=== PATIENT | male | born 1975 | race Two or more races ===

== ENCOUNTER 2020-06-08 15:44 | Inpatient (IN) | payer BC, OTHER ==
[~2020-06-08] VITALS: Ht 180.3 cm; Wt 133.4 kg
[2020-06-08 17:40] LABS: Basophils # (auto) 0.1 10 ^3/uL (0-0.2); Eosinophils # (auto) 0 10 ^3/uL (0-0.8); Eosinophils % (auto) 0.6 % (0.0-7.0); Hemoglobin 17.2 g/dL (13.5-17.5); Lymphocytes # (auto) 0.8 10 ^3/uL (0.4-5.4); Monocytes # (auto) 0.4 10 ^3/uL (0-1.3); Neutrophils % (auto) 74.6 % (37.0-80.0); Nucleated Red Blood Cells % 0.1 %; Platelet Count (auto) 205 10^3/uL (140-450)
[2020-06-08 17:42] LABS: Basophils % (auto) 1.3 % (0.0-2.0); Hematocrit 51.8 % (41.0-53.0); Lymphocytes % (auto) 15.3 % (10.0-50.0); Mean Corpuscular Hemoglobin 33.7 pg (28.0-32.0); Mean Corpuscular Hgb Conc. 33.1 g/dL (32.0-36.0); Mean Corpuscular Volume 101.8 fL (80.0-100.0); Monocytes % (auto) 8.2 % (0.0-12.0); Neutrophils # (auto) 3.9 10 ^3/uL (1.6-8.6); Red Blood Cells 5.09 10^6/uL (4.5-5.90); Red Cell Distribution Width 13.1 % (11.8-14.3); White Blood Cell 5.2 10^3/uL (4.4-10.8)
[2020-06-08 18:05] LABS: Calcium 9.1 mg/dL (8.5-10.1); Potassium 4.4 mmol/L (3.5-5.1)
[2020-06-08 18:13] LABS: BUN/Creatinine Ratio 10.1; Bilirubin, Total 1.4 mg/dL (0.2-1.0); CRP High Sensitivity 2.38 mg/dL (< 0.3); Total Protein 9.1 g/dL (6.4-8.2)
[2020-06-08] MEDS ORDERED: SODIUM CHLORIDE 0.9% 1,000 ML IV ONE ×2 (18:30→20:00)
[2020-06-08] MEDS ORDERED: InsuLIN REG 1unit/0.01ml Soln (100units/ml) IV ONE ×2 (18:30→20:00)
[2020-06-08] MEDS ORDERED: InsuLIN R (HUMAN) 100 UNITS in SODIUM CHL 0.9% 99 ML IV SCH (21:09)
[2020-06-08] MEDS ORDERED: DEXTROSE (50%) 50ML SYRG IV PRN (21:15)
[2020-06-08] MEDS ORDERED: INSULIN LANTUS (GLARGINE) 1 /0.01ml (100units/ml) SC ONE (21:15)
[2020-06-08] MEDS ORDERED: ONDANSETRON HCL 4 MG/2 ML VIAL IV PRN (21:15)
[2020-06-08] MEDS: SODIUM CHLORIDE 0.9% 1,000 ML IV SCH (21:59)
[2020-06-08] MEDS: ACCU-CHEK COMFORT CURVE STRIP VI SCH ×2 (21:59→23:43)
[2020-06-08] MEDS ORDERED: MORPHINE SULF INJ 2 MG/ML SYRINGE 1ML IV PRN (22:30)
[2020-06-08] MEDS ORDERED: NITROGLYCERIN 0.4 MG SL TAB SL PRN (22:30)
[2020-06-08] MEDS: PANTOPRAZOLE 40 MG/10 ML VIAL INJ IV SCH (22:30)
[2020-06-08 23:31] LABS: Calcium 9.1 mg/dL (8.5-10.1)
[2020-06-08 23:33] LABS: BUN/Creatinine Ratio 16.8
[2020-06-09] MEDS ORDERED: SODIUM CHLORIDE 0.9% 1,000 ML IV SCH ×2 (01:09→03:09)
[2020-06-09] MEDS: ACCU-CHEK COMFORT CURVE STRIP VI SCH ×7 (01:40→23:44)
[2020-06-09] MEDS ORDERED: DEXTROSE (50%) 50ML SYRG IV PRN (03:00)
[2020-06-09] MEDS: SODIUM CHLORIDE 0.9% 1,000 ML IV SCH ×4 (03:15→23:00)
[2020-06-09 03:26] LABS: Basophils # (auto) 0.1 10 ^3/uL (0-0.2); Eosinophils # (auto) 0.1 10 ^3/uL (0-0.8); Eosinophils % (auto) 2.1 % (0.0-7.0); Hematocrit 47.5 % (41.0-53.0); Lymphocytes % (auto) 21.9 % (10.0-50.0); Mean Corpuscular Hemoglobin 33.8 pg (28.0-32.0); Mean Corpuscular Hgb Conc. 33.8 g/dL (32.0-36.0); Mean Corpuscular Volume 100.2 fL (80.0-100.0); Monocytes # (auto) 0.4 10 ^3/uL (0-1.3); Monocytes % (auto) 9.1 % (0.0-12.0); Neutrophils # (auto) 2.9 10 ^3/uL (1.6-8.6); Neutrophils % (auto) 64.9 % (37.0-80.0); Platelet Count (auto) 171 10^3/uL (140-450); Red Blood Cells 4.74 10^6/uL (4.5-5.90); Red Cell Distribution Width 13.5 % (11.8-14.3); White Blood Cell 4.5 10^3/uL (4.4-10.8)
[2020-06-09 03:44] LABS: Albumin 3.5 g/dL (3.4-5.0); Calcium 8.5 mg/dL (8.5-10.1); Potassium 3.9 mmol/L (3.5-5.1)
[2020-06-09 03:48] LABS: BUN/Creatinine Ratio 15.2; Bilirubin, Total 1.1 mg/dL (0.2-1.0); Total Protein 7.8 g/dL (6.4-8.2)
[2020-06-09] MEDS: InsuLIN REG 1unit/0.01ml Soln (100units/ml) SC SCH ×6 (04:44→23:44)
[2020-06-09 05:00] VITALS: BP 148/107
[2020-06-09 08:00] VITALS: BP 154/108
[2020-06-09 09:00] VITALS: BP 154/108
[2020-06-09] MEDS ORDERED: INSULIN LANTUS (GLARGINE) 1 /0.01ml (100units/ml) SC SCH (10:00)
[2020-06-09] MEDS: PANTOPRAZOLE 40 MG/10 ML VIAL INJ IV SCH (10:03)
[2020-06-09 13:00] VITALS: BP 149/106
[2020-06-09] MEDS ORDERED: LORazepam 0.5 MG TAB PO PRN (13:00)
[2020-06-09] MEDS ORDERED: LOSARTAN POTASSIUM 50 MG TAB PO ONE (13:15)
[2020-06-09] MEDS ORDERED: cloNIDine HCL 0.1 MG TAB PO ONE (13:15)
[2020-06-09 14:45] LABS: Urine Bacteria NONE SEEN /hpf (None Seen); Urine Blood Negative /uL (Negative); Urine WBC 3 /hpf (0 - 3)
[2020-06-09 15:01] LABS: Alcohol, Urine < 3.0 mg/dL (0-10); Amphetamine Screen, Urine NEGATIVE (NEGATIVE); Barbiturate Scree,Urine NEGATIVE (NEGATIVE); Benzodiazephine Screen, Urine NEGATIVE (NEGATIVE); Cannabinoid Screen, Urine NEGATIVE (NEGATIVE); Cocaine Screen, Urine NEGATIVE (NEGATIVE); Opiate Scree,Urine NEGATIVE (NEGATIVE); Phencyclidine Screen, Urine NEGATIVE (NEGATIVE)
[2020-06-09] MEDS: FOLIC ACID 1 MG, MULTIPLE VITAMIN 10 ML, MAGNESIUM SULF SDV 50% 8 MEQ, THIAMINE INJ 100... INJ SCH ×5 (16:07)
[2020-06-09 16:39] VITALS: BP 148/100
[2020-06-09] MEDS ORDERED: cloNIDine HCL 0.1 MG TAB PO PRN (17:00)
[2020-06-09] MEDS: INSULIN 70/30 1unit/0.01ml Susp (100units/ml) SC SCH (21:55)
[2020-06-09 22:00] VITALS: BP 149/106
[2020-06-10] MEDS: guaiFENesin-DM 100/10mg/5ml SYR PO PRN ×2 (01:07→21:20)
[2020-06-10] MEDS: ACCU-CHEK COMFORT CURVE STRIP VI SCH ×5 (04:03→21:13)
[2020-06-10] MEDS: InsuLIN REG 1unit/0.01ml Soln (100units/ml) SC SCH ×5 (04:05→21:12)
[2020-06-10 05:00] VITALS: BP 148/110
[2020-06-10 06:47] LABS: Cholesterol 338 mg/dL (< 200); Folate (Folic Acid) > 24.00 ng/mL (5.38-24); HDL Cholesterol 41 mg/dL (40-59); LDL Cholesterol 276 mg/dL (< 100); Triglycerides 181 mg/dL (< 150)
[2020-06-10] MEDS ORDERED: hydrALAZINE HCL 20 MG/ML VL IV ONE (07:00)
[2020-06-10] MEDS ORDERED: hydrALAZINE HCL 20 MG/ML VL IV PRN (07:00)
[2020-06-10] MEDS ORDERED: cloNIDine HCL 0.1 MG TAB PO PRN (07:00)
[2020-06-10 07:40] LABS: Albumin 3.1 g/dL (3.4-5.0); Calcium 8.5 mg/dL (8.5-10.1); Magnesium 2.4 mg/dL (1.6-2.6)
[2020-06-10 07:45] LABS: BUN/Creatinine Ratio 11.8; Bilirubin, Total 1.1 mg/dL (0.2-1.0); Phosphorus 3.6 mg/dL (2.5-4.90)
[2020-06-10 08:00] VITALS: BP 146/94
[2020-06-10 09:00] VITALS: BP 146/94
[2020-06-10] MEDS: SODIUM CHLORIDE 0.9% 1,000 ML IV SCH ×2 (09:00→18:28)
[2020-06-10 09:43] LABS: Hepatitis B Surface Antibody Negative
[2020-06-10] MEDS ORDERED: POTASSIUM CHL 20 Meq TABLET PO ONE (10:00)
[2020-06-10 10:02] LABS: Hepatitis A Total Antibody Positive
[2020-06-10 11:18] LABS: Hepatitis A Ab IgM Negative; Hepatitis B Core IgM Negative; Hepatitis B Core Total AB Negative; Hepatitis B Surface Antigen Negative (Negative); Hepatitis C Antibody Negative (Negative)
[2020-06-10 11:21] LABS: INR 1.02 (0.9-1.15); Partial Thromboplastin Time 25.1 sec (23.0-31.2)
[2020-06-10] MEDS: INSULIN 70/30 1unit/0.01ml Susp (100units/ml) SC SCH ×3 (11:45→22:00)
[2020-06-10] MEDS: LOSARTAN POTASSIUM 50 MG TAB PO SCH (11:56)
[2020-06-10] MEDS: PANTOPRAZOLE 40 MG/10 ML VIAL INJ IV SCH (11:56)
[2020-06-10 12:00] VITALS: BP 134/66
[2020-06-10] MEDS: FOLIC ACID 1 MG, MULTIPLE VITAMIN 10 ML, MAGNESIUM SULF SDV 50% 8 MEQ, THIAMINE INJ 100... INJ SCH ×5 (15:15)
[2020-06-10 16:48] VITALS: BP 135/84
[2020-06-10 21:59] VITALS: BP 142/95
[2020-06-11] MEDS: ACCU-CHEK COMFORT CURVE STRIP VI SCH ×5 (00:01→16:00)
[2020-06-11] MEDS: InsuLIN REG 1unit/0.01ml Soln (100units/ml) SC SCH ×5 (00:01→16:00)
[2020-06-11 04:56] VITALS: BP 146/93
[2020-06-11] MEDS: SODIUM CHLORIDE 0.9% 1,000 ML IV SCH ×2 (05:00→15:00)
[2020-06-11 07:14] LABS: Eosinophils # (auto) 0.1 10 ^3/uL (0-0.8); Hemoglobin 15.9 g/dL (13.5-17.5); Monocytes # (auto) 0.3 10 ^3/uL (0-1.3); Neutrophils # (auto) 2.3 10 ^3/uL (1.6-8.6); White Blood Cell 3.7 10^3/uL (4.4-10.8)
[2020-06-11 07:16] LABS: Basophils # (auto) 0.1 10 ^3/uL (0-0.2); Basophils % (auto) 1.4 % (0.0-2.0); Eosinophils % (auto) 2.9 % (0.0-7.0); Hematocrit 46.9 % (41.0-53.0); Lymphocytes % (auto) 26.4 % (10.0-50.0); Mean Corpuscular Hemoglobin 33.8 pg (28.0-32.0); Mean Corpuscular Volume 99.6 fL (80.0-100.0); Monocytes % (auto) 7.8 % (0.0-12.0); Neutrophils % (auto) 61.5 % (37.0-80.0); Nucleated Red Blood Cells % 1.2 %; Platelet Count (auto) 164 10^3/uL (140-450); Red Blood Cells 4.71 10^6/uL (4.5-5.90); Red Cell Distribution Width 13.3 % (11.8-14.3)
[2020-06-11 07:19] LABS: Albumin 3.2 g/dL (3.4-5.0); Calcium 8.8 mg/dL (8.5-10.1); Magnesium 2.1 mg/dL (1.6-2.6); Potassium 3.3 mmol/L (3.5-5.1)
[2020-06-11 07:22] LABS: BUN/Creatinine Ratio 12.2
[2020-06-11 07:25] LABS: Bilirubin, Total 0.9 mg/dL (0.2-1.0); Total Protein 7.7 g/dL (6.4-8.2)
[2020-06-11 08:00] VITALS: BP 149/112
[2020-06-11 09:20] VITALS: BP 143/96
[2020-06-11] MEDS ORDERED: POTASSIUM CHL 20 Meq TABLET PO ONE (10:30)
[2020-06-11] MEDS: INSULIN 70/30 1unit/0.01ml Susp (100units/ml) SC SCH (11:30)
[2020-06-11] MEDS: FOLIC ACID 1 MG, MULTIPLE VITAMIN 10 ML, MAGNESIUM SULF SDV 50% 8 MEQ, THIAMINE INJ 100... INJ SCH ×5 (11:32)
[2020-06-11] MEDS: PANTOPRAZOLE 40 MG/10 ML VIAL INJ IV SCH (11:32)
[2020-06-11] MEDS: LOSARTAN POTASSIUM 50 MG TAB PO SCH (11:32)
[2020-06-11 13:12] VITALS: BP 143/109
[2020-06-11 15:50] VITALS: BP 148/108
[2020-06-11 17:07] VITALS: BP 134/95
== END 2020-06-11 17:30 | disposition home or self-care (01) | DRG 638 ==
LOC: ER 15:44 → OVERFLOW 15:45 → TELE-WESTW 06-09 05:05
PROVIDERS: ADMIT Nurse Practitioner; ATTEND Internal Medicine
DX: E11.10 Type 2 diabetes mellitus with ketoacidosis without coma (principal); Z68.41 Body mass index [BMI] 40.0-44.9, adult; E66.01 Morbid (severe) obesity due to excess calories; E78.5 Hyperlipidemia, unspecified; F10.10 Alcohol abuse, uncomplicated; I08.0 Rheumatic disorders of both mitral and aortic valves; I10 Essential (primary) hypertension; I70.0 Atherosclerosis of aorta; K40.20 Bilateral inguinal hernia, without obstruction or gangrene, not specified as recurrent; K76.0 Fatty (change of) liver, not elsewhere classified; Z20.828 Contact with and (suspected) exposure to other viral communicable diseases; R74.0 Nonspecific elevation of levels of transaminase and lactic acid dehydrogenase [LDH]; K70.10 Alcoholic hepatitis without ascites; Y90.9 Presence of alcohol in blood, level not specified; Z79.4 Long term (current) use of insulin
CPT/HCPCS: 36415; 36600; 71045; 74176; 76705; 80048; 80053; 80061; 80074; 80307; 81001; 82010; 82043; 82306; 82607; 82728; 82746; 82805; 82962; 83036; 83516; 83615; 83735; 83930; 84100; 84443; 85025; 85379; 85610; 85730; 86141; 86225; 86235; 86704; 86706; 86708; 86803; 87340; 87426; 93005; 93306; C9113; G0378; J1815

== ENCOUNTER → 2020-06-15 | Outpatient (CLI) | payer BC ==
[2020-06-15 14:57] LABS: Albumin 3.7 g/dL (3.4-5.0); Calcium 9.7 mg/dL (8.5-10.1)
[2020-06-15 15:01] LABS: BUN/Creatinine Ratio 17.2; Bilirubin, Total 0.9 mg/dL (0.2-1.0); Total Protein 7.8 g/dL (6.4-8.2)
== END | disposition home or self-care (01) ==
LOC: LAB 14:23
PROVIDERS: ATTEND Internal Medicine
DX: I10 Essential (primary) hypertension (principal)
CPT/HCPCS: 36415; 80053

== ENCOUNTER → 2020-07-06 | Outpatient (CLI) | payer BC ==
[2020-07-06 17:20] LABS: Albumin 3.9 g/dL (3.4-5.0); Calcium 8.9 mg/dL (8.5-10.1); Potassium 3.7 mmol/L (3.5-5.1)
[2020-07-06 17:23] LABS: BUN/Creatinine Ratio 21.5; Bilirubin, Total 0.8 mg/dL (0.2-1.0); Total Protein 7.5 g/dL (6.4-8.2)
== END | disposition home or self-care (01) ==
LOC: LAB 16:51
PROVIDERS: ATTEND Internal Medicine
DX: E11.22 Type 2 diabetes mellitus with diabetic chronic kidney disease (principal); N18.9 Chronic kidney disease, unspecified
CPT/HCPCS: 36415; 80053

== ENCOUNTER 2023-12-31 19:01 | Emergency (ER) | payer BC ==
[~2023-12-31] VITALS: Ht 180.3 cm; Wt 108.9 kg
[2023-12-31 20:27] LABS: Basophils # (auto) 0.1 10 ^3/uL (0-0.2); Basophils % (auto) 1.3 % (0.0-2.0); Eosinophils # (auto) 0.1 10 ^3/uL (0-0.8); Eosinophils % (auto) 1.1 % (0.0-7.0); Hematocrit 42.3 % (41.0-53.0); Hemoglobin 14.3 g/dL (13.5-17.5); Lymphocytes # (auto) 1.1 10 ^3/uL (0.4-5.4); Lymphocytes % (auto) 25.4 % (10.0-50.0); Mean Corpuscular Hgb Conc. 33.8 g/dL (32.0-36.0); Mean Corpuscular Volume 94.6 fL (80.0-100.0); Monocytes # (auto) 0.6 10 ^3/uL (0-1.3); Monocytes % (auto) 13.1 % (0.0-12.0); Neutrophils # (auto) 2.6 10 ^3/uL (1.6-8.6); Neutrophils % (auto) 59.1 % (37.0-80.0); Nucleated Red Blood Cells % 0.2 %; Red Blood Cells 4.47 10^6/uL (4.5-5.90); Red Cell Distribution Width 13.1 % (11.8-14.3); White Blood Cell 4.4 10^3/uL (4.4-10.8)
[2023-12-31 20:43] LABS: Alanine Aminotransferase 13 U/L (7-40); Albumin 4.4 g/dL (3.2-4.8); Alkaline Phosphatase 113 U/L (46-116); Anion Gap 4 (5-15); Aspartate Aminotransferase 14 U/L (13-40); BUN/Creatinine Ratio 12.1 (10.0-20.0); Blood Urea Nitrogen 11 mg/dL (9-23); Calcium 9.5 mg/dL (8.5-10.1); Carbon Dioxide 29 mmol/L (20-30); Chloride 98 mmol/L (98-107); Potassium 4.1 mmol/L (3.5-5.1); Sodium 131 mmol/L (136-145)
[2023-12-31 20:44] LABS: Bilirubin, Total 0.4 mg/dL (0.2-1.0); Total Protein 7.1 g/dL (5.7-8.2)
[2023-12-31 20:51] LABS: Urine Bacteria FEW /hpf (None Seen); Urine Blood Negative /uL (Negative); Urine Clarity Clear (Clear); Urine Color Colorless (Yellow); Urine Protein, UAD Negative (Negative); Urine Urobilinogen Normal (Negative); Urine WBC 1 /hpf (0 - 3); Urine pH 6.5 (5.0-9.0)
[2023-12-31 20:53] LABS: Glucose 426 mg/dL (74-106)
[2023-12-31] MEDS ORDERED: NITR-87 PO (21:59)
[2023-12-31] MEDS ORDERED: INSLANTI SC (21:59)
[2023-12-31] MEDS ORDERED: METF-489 PO (21:59)
[2023-12-31 22:14] VITALS: BP 145/106; PULSE 91; RESP 16; TEMP 97; O2SAT 99
== END 2023-12-31 22:21 | disposition home or self-care (01) ==
LOC: ER 19:01
DX: E11.65 Type 2 diabetes mellitus with hyperglycemia (principal); N39.0 Urinary tract infection, site not specified; I10 Essential (primary) hypertension; E78.5 Hyperlipidemia, unspecified
CPT/HCPCS: 36415; 36600; 71045; 80053; 81001; 82805; 82962; 85025

== ENCOUNTER 2024-03-25 12:42 | Inpatient (IN) | payer BC ==
[~2024-03-25] VITALS: Ht 180.3 cm; Wt 104.1 kg
[~2024-03-25 12:42] MED LIST: INSLANTI SC; METF-489 PO; NITR-87 PO
[2024-03-25] MEDS: ALBUTEROL SULF 2.5 MG/0.5ML(0.5%) NEB SOLN NEB ONE (15:03)
[2024-03-25] MEDS: cefTRIAXone SOD 1,000 MG VL IM ONE (15:44)
[2024-03-25 16:16] LABS: Basophils # (auto) 0.1 10 ^3/uL (0-0.2); Basophils % (auto) 1.2 % (0.0-2.0); Eosinophils # (auto) 0.1 10 ^3/uL (0-0.8); Eosinophils % (auto) 0.9 % (0.0-7.0); Hematocrit 44.9 % (41.0-53.0); Hemoglobin 15.4 g/dL (13.5-17.5); Lymphocytes # (auto) 1.2 10 ^3/uL (0.4-5.4); Lymphocytes % (auto) 18.2 % (10.0-50.0); Mean Corpuscular Hemoglobin 33.1 pg (28.0-32.0); Mean Corpuscular Hgb Conc. 34.2 g/dL (32.0-36.0); Mean Corpuscular Volume 96.8 fL (80.0-100.0); Monocytes # (auto) 0.6 10 ^3/uL (0-1.3); Monocytes % (auto) 9.4 % (0.0-12.0); Neutrophils # (auto) 4.8 10 ^3/uL (1.6-8.6); Neutrophils % (auto) 70.3 % (37.0-80.0); Nucleated Red Blood Cells % 0.2 %; Red Blood Cells 4.64 10^6/uL (4.5-5.90); Red Cell Distribution Width 14.2 % (11.8-14.3); White Blood Cell 6.8 10^3/uL (4.4-10.8)
[2024-03-25 16:43] LABS: Alanine Aminotransferase 21 U/L (7-40); Albumin 4.8 g/dL (3.2-4.8); Alkaline Phosphatase 174 U/L (46-116); Carbon Dioxide 11 mmol/L (20-30); Chloride 95 mmol/L (98-107); Glucose 388 mg/dL (74-106); Potassium 3.9 mmol/L (3.5-5.1)
[2024-03-25 16:44] LABS: Anion Gap 24 (5-15); Aspartate Aminotransferase 14 U/L (13-40); BUN/Creatinine Ratio 12.3 (10.0-20.0); Bilirubin, Total 0.5 mg/dL (0.2-1.0); Blood Urea Nitrogen 16 mg/dL (9-23); Sodium 130 mmol/L (136-145)
[2024-03-25] MEDS ORDERED: AUG875T PO (17:26)
[2024-03-25] MEDS ORDERED: AZITTAB2 PO (17:26)
[2024-03-25] MEDS ORDERED: ALBUAER3 IN (17:27)
[2024-03-26] VITALS (8 sets, daily range): BP systolic 159; BP diastolic 104; PULSE 95–143; RESP 18–26; TEMP 98.3; O2SAT 97–100
[2024-03-26] MEDS: methylPREDNISolone SOD SUCC 125 MG/2 ML VL IV ONE (00:20)
[2024-03-26] MEDS: ALBUTEROL SULF 2.5 MG/0.5ML(0.5%) NEB SOLN HHN ONE (00:32)
[2024-03-26] MEDS: IPRATROPIUM BROM 0.5 MG/2.5ML INH SOL HHN ONE (00:32)
[2024-03-26] MEDS ORDERED: NITROGLYCERIN 0.4 MG SL TAB SL PRN ×2 (00:45→01:45)
[2024-03-26] MEDS ORDERED: ONDANSETRON HCL 4 MG/2 ML VIAL IV PRN (00:45)
[2024-03-26] MEDS ORDERED: DEXTROSE (50%) 50ML SYRG IV PRN ×5 (00:45→19:45)
[2024-03-26] MEDS ORDERED: ALBUTEROL SULF 2.5 MG/0.5ML(0.5%) NEB SOLN NEB PRN (00:45)
[2024-03-26] MEDS: INSULIN DRIP 100 UNIT/100ML 100 ML IV SCH ×2 (00:45→16:15)
[2024-03-26 00:54] LABS: Base Excess -17.9 mmol/L (-2.0-2.0)
[2024-03-26 01:06] LABS: Chloride 97 mmol/L (98-107); Potassium 3.6 mmol/L (3.5-5.1); Sodium 127 mmol/L (136-145)
[2024-03-26 01:07] LABS: Anion Gap 20.00001 (5-15); Calcium 9.6 mg/dL (8.7-10.4)
[2024-03-26] MEDS: SODIUM CHLORIDE 0.9% 2,000 ML IV ONE (01:08)
[2024-03-26 01:12] LABS: BUN/Creatinine Ratio 6.6 (10.0-20.0); Blood Urea Nitrogen 9 mg/dL (9-23)
[2024-03-26 01:24] LABS: Carbon Dioxide < 10 mmol/L (20-30); Glucose 432 mg/dL (74-106)
[2024-03-26] MEDS: INSULIN LANTUS (GLARGINE) 1 /0.01ml (100units/ml) SC ONE (01:24)
[2024-03-26] MEDS ORDERED: ACCU-CHEK COMFORT CURVE STRIP VI SCH ×3 (01:30→05:00)
[2024-03-26] MEDS: dilTIAZem 25 MG/5 ML VIAL IV ONE (01:51)
[2024-03-26] MEDS: IPRATROPIUM BROM 0.5 MG/2.5ML INH SOL NEB ONE (02:00)
[2024-03-26] MEDS: LORazepam 2MG/ML-1ML VIAL IV ONE (02:04)
[2024-03-26] MEDS: SODIUM BICARB 50mEq/50ml Vial 100 ML in SOD CHL 0.45% 1,000 ML IV SCH (02:20)
[2024-03-26] MEDS: SODIUM BICARB 8.4% 50Meq/50ml SYR Vial IV ONE (02:21)
[2024-03-26] MEDS: MORPHINE SULFATE INJ 2 MG/ml SYRG IV PRN (03:21)
[2024-03-26] MEDS: ACCU-CHEK COMFORT CURVE STRIP VI SCH ×2 (03:30→20:28)
[2024-03-26] MEDS ORDERED: InsuLIN REG 1unit/0.01ml Soln (100units/ml) SC SCH ×2 (04:00→05:00)
[2024-03-26] MEDS: AZITHROMYCIN 500MG/ 250ML 250 ML IV ONE (04:42)
[2024-03-26 07:48] LABS: Chloride 105 mmol/L (98-107); Potassium 3.3 mmol/L (3.5-5.1)
[2024-03-26 07:49] LABS: Anion Gap 19 (5-15); Calcium 8.4 mg/dL (8.5-10.1); Carbon Dioxide 11 mmol/L (20-30)
[2024-03-26 07:54] LABS: BUN/Creatinine Ratio 9.9 (10.0-20.0); Blood Urea Nitrogen 11 mg/dL (9-23)
[2024-03-26 08:02] LABS: Glucose 327 mg/dL (74-106); Sodium 135 mmol/L (136-145)
[2024-03-26 13:37] LABS: Chloride 105 mmol/L (98-107); Potassium 2.9 mmol/L (3.5-5.1); Sodium 135 mmol/L (136-145)
[2024-03-26 13:38] LABS: Anion Gap 12 (5-15); Calcium 8.9 mg/dL (8.5-10.1); Carbon Dioxide 18 mmol/L (20-30)
[2024-03-26 13:43] LABS: Blood Urea Nitrogen 10 mg/dL (9-23); Glucose 303 mg/dL (74-106)
[2024-03-26 13:46] LABS: BUN/Creatinine Ratio 9.7 (10.0-20.0)
[2024-03-26] MEDS: SOD CHL 0.9%/ KCL 40MEQ 1,000 ML IV ONE (15:41)
[2024-03-26] MEDS: POTASSIUM EFFERVESENT TAB 25 MEQ PO ONE (16:01)
[2024-03-26] MEDS: cefTRIAXone 1GM/50ML D5W 50 ML IV SCH (16:08)
[2024-03-26 16:12] LABS: Chloride 103 mmol/L (98-107)
[2024-03-26 16:13] LABS: Anion Gap 11 (5-15); Carbon Dioxide 18 mmol/L (20-30); Potassium 3.4 mmol/L (3.5-5.1); Sodium 132 mmol/L (136-145)
[2024-03-26 16:14] LABS: Calcium 9.1 mg/dL (8.5-10.1)
[2024-03-26 16:18] LABS: Glucose 363 mg/dL (74-106)
[2024-03-26 16:19] LABS: BUN/Creatinine Ratio 9.9 (10.0-20.0); Blood Urea Nitrogen 10 mg/dL (9-23)
[2024-03-26] MEDS: InsuLIN REG 1unit/0.01ml Soln (100units/ml) IV ONE (16:46)
[2024-03-26] MEDS: THIAMINE HCL 100 MG TAB PO SCH (17:07)
[2024-03-26] MEDS: MULTIPLE VITAMIN TAB PO SCH (17:08)
[2024-03-26] MEDS: InsuLIN REG 1unit/0.01ml Soln (100units/ml) SC SCH (20:29)
[2024-03-26] MEDS: INSULIN LANTUS (GLARGINE) 1 /0.01ml (100units/ml) SC SCH (22:22)
[2024-03-26] MEDS: AZITHROMYCIN 500MG/ 250ML 250 ML IV SCH (22:27)
[2024-03-27] VITALS (10 sets, daily range): BP systolic 110–128; BP diastolic 76–91; PULSE 77–99; RESP 1–20; TEMP 98–99.1; O2SAT 96–100
[2024-03-27] MEDS ORDERED: DULO1CAP4 PO (01:06)
[2024-03-27] MEDS ORDERED: GABA-1250 PO (01:06)
[2024-03-27] MEDS: TEMAZEPAM 15 MG CAP PO PRN (01:31)
[2024-03-27 01:32] LABS: Chloride 102 mmol/L (98-107); Potassium 3.1 mmol/L (3.5-5.1); Sodium 134 mmol/L (136-145)
[2024-03-27 01:33] LABS: Anion Gap 11 (5-15); Calcium 9.1 mg/dL (8.7-10.4); Carbon Dioxide 21 mmol/L (20-30)
[2024-03-27 01:38] LABS: BUN/Creatinine Ratio 10.9 (10.0-20.0); Blood Urea Nitrogen 11 mg/dL (9-23); Glucose 309 mg/dL (74-106)
[2024-03-27 06:27] LABS: Basophils # (auto) 0 10 ^3/uL (0-0.2); Basophils % (auto) 0.9 % (0.0-2.0); Eosinophils # (auto) 0.1 10 ^3/uL (0-0.8); Eosinophils % (auto) 2.6 % (0.0-7.0); Hematocrit 38.1 % (41.0-53.0); Hemoglobin 13.2 g/dL (13.5-17.5); Lymphocytes # (auto) 0.8 10 ^3/uL (0.4-5.4); Lymphocytes % (auto) 19.4 % (10.0-50.0); Mean Corpuscular Hemoglobin 32.7 pg (28.0-32.0); Mean Corpuscular Hgb Conc. 34.6 g/dL (32.0-36.0); Mean Corpuscular Volume 94.4 fL (80.0-100.0); Monocytes # (auto) 0.6 10 ^3/uL (0-1.3); Neutrophils # (auto) 2.5 10 ^3/uL (1.6-8.6); Neutrophils % (auto) 62.1 % (37.0-80.0); Nucleated Red Blood Cells % 0.1 %; Red Blood Cells 4.04 10^6/uL (4.5-5.90); Red Cell Distribution Width 14.5 % (11.8-14.3); White Blood Cell 4.1 10^3/uL (4.4-10.8)
[2024-03-27 06:34] LABS: Anion Gap 7 (5-15); Carbon Dioxide 25 mmol/L (20-30); Chloride 105 mmol/L (98-107); Sodium 137 mmol/L (136-145)
[2024-03-27 06:35] LABS: Calcium 8.9 mg/dL (8.5-10.1)
[2024-03-27 06:39] LABS: Glucose 253 mg/dL (74-106)
[2024-03-27 06:40] LABS: BUN/Creatinine Ratio 12.2 (10.0-20.0); Blood Urea Nitrogen 12 mg/dL (9-23)
[2024-03-27] MEDS: ACETAMINOPHEN 325 MG TAB PO PRN (08:48)
[2024-03-27] MEDS ORDERED: INSULIN LANTUS (GLARGINE) 1 /0.01ml (100units/ml) SC SCH (10:00)
[2024-03-27] MEDS ORDERED: IPRATROPIUM BROM 0.5 MG/2.5ML INH SOL NEB PRN (10:45)
[2024-03-27] MEDS ORDERED: ALBUTEROL SULF 2.5 MG/0.5ML(0.5%) NEB SOLN NEB PRN (10:45)
[2024-03-27] MEDS: SOD CHL 0.9%/ KCL 40MEQ 1,000 ML IV SCH (11:21)
[2024-03-27] MEDS: POTASSIUM EFFERVESENT TAB 25 MEQ PO ONE (11:27)
[2024-03-27] MEDS: INSULIN LANTUS (GLARGINE) 1 /0.01ml (100units/ml) SC SCH (11:50)
[2024-03-28 00:02] VITALS: O2SAT 96
[2024-03-28 01:00] VITALS: BP 117/86; PULSE 88; RESP 18; TEMP 98; O2SAT 96
[2024-03-28 05:00] VITALS: BP 139/100; PULSE 99; RESP 18; TEMP 98.5; O2SAT 97
[2024-03-28 07:50] LABS: Chloride 103 mmol/L (98-107); Potassium 3.5 mmol/L (3.5-5.1); Sodium 138 mmol/L (136-145)
[2024-03-28 07:51] LABS: Anion Gap 7 (5-15); Carbon Dioxide 28 mmol/L (20-30)
[2024-03-28 07:57] LABS: BUN/Creatinine Ratio 10.3 (10.0-20.0); Blood Urea Nitrogen 7 mg/dL (9-23); Glucose 118 mg/dL (74-106)
[2024-03-28 08:00] VITALS: BP 119/67; PULSE 58; RESP 16; TEMP 97.9; O2SAT 97
[2024-03-28] MEDS ORDERED: DOXY-448 PO (08:54)
[2024-03-28] MEDS ORDERED: INSU1INJ19 SC (08:54)
[2024-03-28] MEDS ORDERED: METF-372 PO (08:54)
[2024-03-28 10:00] VITALS: O2SAT 96
== END 2024-03-28 11:30 | disposition home or self-care (01) | DRG 871 ==
LOC: ER 12:42 → TELE-WESTW 03-26 00:49 → TELE 03-26 00:49 → TELE-WESTW 03-26 23:11 → WEST WING 03-28 02:33
PROVIDERS: ADMIT Nurse Practitioner; ATTEND Nurse Practitioner Acute Care
DX: A41.9 Sepsis, unspecified organism (principal); E11.10 Type 2 diabetes mellitus with ketoacidosis without coma; J15.69 Pneumonia due to other Gram-negative bacteria; J15.9 Unspecified bacterial pneumonia; N17.9 Acute kidney failure, unspecified; E86.0 Dehydration; I10 Essential (primary) hypertension; E87.6 Hypokalemia; E66.9 Obesity, unspecified; E78.5 Hyperlipidemia, unspecified; F10.20 Alcohol dependence, uncomplicated; J45.909 Unspecified asthma, uncomplicated; Z79.4 Long term (current) use of insulin; Z79.84 Long term (current) use of oral hypoglycemic drugs; Z68.32 Body mass index [BMI] 32.0-32.9, adult; Y90.9 Presence of alcohol in blood, level not specified
CPT/HCPCS: 36415; 36600; 71045; 71046; 80048; 80053; 82010; 82805; 82962; 83036; 83605; 83880; 84484; 85025; 87040; 93005; 94640; 94644; G0378; J0696; J1815

== ENCOUNTER 2024-11-12 00:09 | Emergency (ER) | payer BC ==
[~2024-11-12] VITALS: Ht 180.3 cm; Wt 107.9 kg
[~2024-11-12 00:09] MED LIST changes: +ALBUAER3 IN; +AUG875T PO; +AZITTAB2 PO; +DOXY100C79 PO; +DULO1CAP4 PO; +GABA-1250 PO; +INSU1INJ19 SC; +METF-372 PO; -NITR-87 PO
[2024-11-12 00:41] LABS: Basophils # (auto) 0.2 10 ^3/uL (0-0.2); Basophils % (auto) 3.3 % (0.0-2.0); Eosinophils # (auto) 0.1 10 ^3/uL (0-0.8); Eosinophils % (auto) 1.7 % (0.0-7.0); Hematocrit 47.4 % (41.0-53.0); Hemoglobin 16.3 g/dL (13.5-17.5); Lymphocytes # (auto) 2.2 10 ^3/uL (0.4-5.4); Lymphocytes % (auto) 41.8 % (10.0-50.0); Mean Corpuscular Hemoglobin 33.1 pg (28.0-32.0); Mean Corpuscular Hgb Conc. 34.3 g/dL (32.0-36.0); Mean Corpuscular Volume 96.5 fL (80.0-100.0); Monocytes # (auto) 0.2 10 ^3/uL (0-1.3); Monocytes % (auto) 4.4 % (0.0-12.0); Neutrophils # (auto) 2.6 10 ^3/uL (1.6-8.6); Neutrophils % (auto) 48.8 % (37.0-80.0); Nucleated Red Blood Cells % 0.1 %; Platelet Count (auto) 339 10^3/uL (140-450); Red Blood Cells 4.91 10^6/uL (4.5-5.90); Red Cell Distribution Width 14.7 % (11.8-14.3); White Blood Cell 5.3 10^3/uL (4.4-10.8)
[2024-11-12 00:52] LABS: Urine Bacteria None Seen /hpf (None Seen)
[2024-11-12 00:58] LABS: Alanine Aminotransferase 24 U/L (7-40); Anion Gap 14 (5-15); Aspartate Aminotransferase 28 U/L (13-40); BUN/Creatinine Ratio 8.6 (10.0-20.0); Bilirubin, Total 0.4 mg/dL (0.2-1.0); Carbon Dioxide 26 mmol/L (20-31); Lipase 24 U/L (12-53); Potassium 3.8 mmol/L (3.5-5.1); Sodium 136 mmol/L (136-145)
[2024-11-12 01:01] LABS: Albumin 4.8 g/dL (3.2-4.8); Alkaline Phosphatase 190 U/L (46-116); Blood Urea Nitrogen 7 mg/dL (9-23); Chloride 96 mmol/L (98-107); Glucose 364 mg/dL (74-106)
[2024-11-12 01:03] LABS: Urine Blood Negative /uL (Negative); Urine Clarity Clear (Clear); Urine Color Light-Yellow (Yellow); Urine Protein, UAD 1+ (Negative); Urine Specific Gravity 1.048 (1.001-1.035); Urine Squamous Epithelial Cell FEW /hpf (<5); Urine Urobilinogen Normal (Negative); Urine WBC < 1 /HPF (0-3); Urine pH 6.5 (5.0-9.0)
--- NOTE | 2024-11-12 01:44 | DVH ---
Exam: CT CT AB PEL WO CON-NO ORAL OR IV History: abd pain Comparison Study: CT abdomen/pelvis 06/08/2020 Technique: Multidetector spiral CT of the abdomen was performed from lung bases to pubic symphysis. Imaging was performed without IV contrast. Axial, coronal and sagittal multiplanar reformats were ob tained from the axial data set by the technologist. Radiation Dose : 1. Abdomen/Pelvis: CTDIvol [CTDIvol] mGy, DLP [DLP] mGy*cm. Findings: Evaluation of solid organs is limited due to lack of intravenous contrast use. Lung Bases: There is a lung nodule measuring approximately 2.1 x 1.5 cm in the right lower lobe which was not present on the prior CT chest from June 2020. No pleural or pericardial effusion. Liver: The liver is normal in size but demonstrates diffuse decreased density consistent with fatty i nfiltration. No focal lesion is identified in the liver. Gallbladder and Biliary Tree: No abnormality demonstrated. Spleen: No abnormality demonstrated. Pancreas: No abnormality demonstrated. Adrenal Glands: No abnormality demonstrated. Kidneys: No abnormality demonstrated. Bladder: Grossly unremarkable for degree of distention. Bowel: Stomach appears grossly unremarkable. No dilated or thick-walled loops of large or small bowel noted. Large amount of stool present throughout the large bowel. Appendix is not visualized. Ascites: Absent Lymphadenopathy: No of lymphadenopathy. Abdominal Wall and Mesentery: Small fat containing right inguinal hernia. Vasculature: Unremarkable given lack of intravenous contrast. Pelvic Organs: Unremarkable. Musculoskeletal: No bony lesions or fracture. IMPRESSION: No acute abdominal or pelvic findings. Lung nodule measuring approximately 2.1 x 1.5 cm in the right lower lobe which was not present on the prior study from June 2020. Fatty infiltration of the liver. Radiation optimization: All CT scans at this facility use at least one of these dose optimization gerardo hniques: automated exposure control mA and/or kV adjustment per patient size (includes targeted exam s where dose is matched to clinical indication) or iterative reconstruction.
[2024-11-12] MEDS: ONDANSETRON ODT 4 MG TAB PO ONE (02:15)
[2024-11-12] MEDS: MORPHINE SULFATE 4 MG/ML SYR/VIAL IM ONE (02:15)
[2024-11-12] MEDS ORDERED: ZOFR4T PO (02:26)
[2024-11-12] MEDS ORDERED: DICY20TA PO (02:26)
--- NOTE | 2024-11-12 02:27 | ED.PDOC ---
GI ASSESSMENT HPI Comments 49-year-old male complaining of left upper quadrant abdominal pain x3 days. Patient was report being a heavy drinker. Last drink was it was afternoon. Patient states he was also diabetic, poorly controlled, only takes his incidence electively. Patient denies any nausea vomiting diarrhea. States pain has been going on and getting worse over the last three days. States he was blood sugars typically in the 200-300 range. Chief Complaint: Abdominal Pain Time Seen by MD: 00:23 Primary Care Provider: NONE Reviewed Notes: Nurses Notes Allergies: Coded Allergies: NO KNOWN ALLERGIES (Unverified , 06/08/20) Home Meds Active Scripts Metformin Hydrochloride (Metformin Hcl) 1,000 Mg Tab, 1 TAB PO BID for 30 Days, #60 TAB 5 Refills Prov:BRANDI SILVERIO NP 03/28/24 Doxycycline (Monohydrate) (Doxycycline) 100 Mg Cap, 100 MG PO BID for 7 Days, #14 CAP Prov:BRANDI SILVERIO NP 03/28/24 Insulin Glargine (Basaglar Kwikpen) 100 Unit/Ml Inj, 31 UNIT SC HS for 30 Days, #6 INJ 3 Refills 31 units q.h.s. Prov:BRANDI SILVERIO NP 03/28/24 Albuterol Sulfate (VENTOLIN MDI) 90 Mcg Ih, 90 MCG IN QID for 7 Days, #1 INH Prov:JACY RODRIGUEZ MD 03/25/24 Azithromycin (Zithromax Tri-Gr) 500 Mg Tab, 500 MG PO DAILY for 3 Days, #3 TAB Prov:JACY RODRIGUEZ MD 03/25/24 Amoxicillin & Pot Clavulanate (AUGMENTIN TABLET) 875 Mg Tb, 875 MG PO BID PRN for 10 Days, #20 TAB Prov:JACY RODRIGUEZ MD 03/25/24 Metformin Hydrochloride (METFORMIN HCL ER) 500 Mg Tab, 2 TAB PO BID for 30 Days, #120 TAB 1 Refill Prov:FIDELINA HERRERA 12/31/23 Insulin Glargine (Lantus) 100 Unit/Ml Inj, 20 UNIT SC HS, #10 ML Prov:FIDELINA HERRERA 12/31/23 Reported Medications Duloxetine HCl (Duloxetine HCl) 20 Mg Cap, 1 CAP PO BID 03/27/24 Gabapentin (Gabapentin) 300 Mg Cap, PO UD Take 1 capsule (300 mg) by mouth every morning, and 3 capsules (900 mg) by mouth every evening. 03/27/24 Information Source: Patient Mode of Arrival: Ambulatory Past Medical History PAST MEDICAL HISTORY: DM, High Lipids, HTN Surgical History: Denies all surgeries Family History Family History: Reviewed,noncontributory to illness, No family hx of Cancer, No family hx of DM, No family hx of Heart sherri, No family hx of HTN, No family hx ofKidney sherri, No family hx of Liver sherri, No family hx of Lung sherri, No family hx of Stroke Social History Smoker: Non-Smoker Alcohol: Occasionally Drugs: Denies Drug Use Lives In: Home Constitutional: denies: chills, diaphoresis, fatigue, fever, malaise, sweats, weakness, others EENTM: denies: blurred vision, double vision, ear bleeding, ear discharge, ear drainage, ear pain, ear ringing, eye pain, eye redness, hearing loss, mouth pain, mouth swelling, nasal discharge, nose bleeding, nose congestion, nose pain, photophobia, tearing, throat pain, throat swelling, voice changes, others Respiratory: denies: cough, hemoptysis, orthopnea, SOB at rest, shortness of breath, SOB with excertion, stridor, wheezing, others Cardiovascular: denies: chest pain, dizzy spells, diaphoresis, Dyspnea on exertion, edema, irregular heart beat, left arm pain, lightheadedness, palpitations, PND, syncope, others Gastrointestinal: reports: abdominal pain, nausea, vomiting; denies: abdomen distended, blood streaked bowels, constipated, diarrhea, dysphagia, difficulty swallowing, hematemesis, melena, poor appetite, poor fluid intake, rectal bleeding, rectal pain, others Genitourinary: denies: burning, dysuria, flank pain, frequency, hematuria, incontinence, penile discharge, penile sore, pain, testicle pain, testicle swelling, urgency, others Neurological: denies: dizziness, fainting, headache, left sided numbness, left sided weakness, numbness, paresthesia, pre-existing deficit, right sided numbness, right sided weakness, seizure, speech problems, tingling, tremors, weakness, others Musculoskeletal: denies: back pain, gout, joint pain, joint swelling, muscle pain, muscle stiffness, neck pain, others Integumetry: denies: bruises, change in color, change in hair/nails, dryness, laceration, lesions, lumps, rash, wounds, others Allergic/Immunocompromised: denies: Difficulty Healing, Frequent Infections, Hives, Itching, others Hematologic/Lymphatic: denies: anemia, blood clots, easy bleeding, easy bruising, swollen glands, others Endocrine: denies: excessive hunger, excessive sweating, excessive thirst, excessive urination, flushing, intolerance to cold, intolerance to heat, unexplained weight gain, unexplained weight loss, others Psychiatric: denies: anxiety, bipolar disorder, depression, hopeless, panic disorder, schizophrenia, sleepless, suicidal, others Physical Exam General Appearance: Moderate Distress, No Apparent Distress HEENT: Normal ENT Inspection, Pharynx Normal, TMs Normal Neck: Full Range of Motion, Non-Tender, Normal, Normal Inspection Respiratory: Chest Non-Tender, Lungs Clear, No Accessory Muscle Use, No Respiratory Distress, Normal Breath Sounds Cardiovascular: No Edema, No JVD, No Murmur, No Gallop, Normal Peripheral Pulses, Regular Rate/Rhythm Breast Exam: Deferred Gastrointestinal: LUQ (TTP), No Organomegaly, No Pulsatile Mass, Soft Genitalia: Deferred Pelvic: Deferred Rectal: Deferred Extremities: No calf tenderness, Normal capillary refill, Normal inspection, Normal range of motion, Non-tender, No pedal edema Musculoskeletal : Apperance: Normal Neurologic: Alert, manager clinic II-XII nml as Tested, No Motor Deficits, Normal Affect, Normal Mood, No Sensory Deficits Cerebellar Function: Normal Reflexes: Normal Skin: Dry, Normal Color, Warm Lymphatic: No Adenopathy Was a procedure done? Was a procedure done?: No GI differential Dx Differential Diagnosis: Cholecystitis, Gastritis/PUD, Gastroenteritis, GI hemorrhage, Diabetes/ DKA, Food Poisoning X-Ray, Labs, Meds, VS Vital Signs Date Time Temp Pulse Resp B/P (MAP) Pulse Ox O2 Delivery O2 Flow Rate FiO2 11/12/24 00:21 97.7 121 20 133/103 (113) 96 Lab Test 11/12/24 00:31 11/12/24 00:30 11/12/24 00:21 Range/Units White Blood Count 5.3 4.4-10.8 10^3/uL Red Blood Count 4.91 4.5-5.90 10^6/uL Hemoglobin 16.3 13.5-17.5 g/dL Hematocrit 47.4 41.0-53.0 % Mean Corpuscular Volume 96.5 80.0-100.0 fL Mean Corpuscular Hemoglobin 33.1 H 28.0-32.0 pg Mean Corpuscular Hemoglobin Concent 34.3 32.0-36.0 g/dL Red Cell Distribution Width 14.7 H 11.8-14.3 % Platelet Count 339 140-450 10^3/uL Mean Platelet Volume 7.8 6.9-10.8 fL Neutrophils (%) (Auto) 48.8 37.0-80.0 % Lymphocytes (%) (Auto) 41.8 10.0-50.0 % Monocytes (%) (Auto) 4.4 0.0-12.0 % Eosinophils (%) (Auto) 1.7 0.0-7.0 % Basophils (%) (Auto) 3.3 H 0.0-2.0 % Neutrophils # (Auto) 2.6 1.6-8.6 10 ^3/uL Lymphocytes # (Auto) 2.2 0.4-5.4 10 ^3/uL Monocytes # (Auto) 0.2 0-1.3 10 ^3/uL Eosinophils # (Auto) 0.1 0-0.8 10 ^3/uL Basophils # (Auto) 0.2 0-0.2 10 ^3/uL Nucleated Red Blood Cells 0.1 % Sodium Level 136 136-145 mmol/L Potassium Level 3.8 3.5-5.1 mmol/L Chloride Level 96 L 98-107 mmol/L Carbon Dioxide Level 26 20-31 mmol/L Anion Gap 14 5-15 Blood Urea Nitrogen 7 L 9-23 mg/dL Creatinine 0.81 0.700-1.30 mg/dL Glomerular Filtration Rate Calc 109 >90 mL/min BUN/Creatinine Ratio 8.6 L 10.0-20.0 Serum Glucose 364 H 74-106 mg/dL Calcium Level 10.0 8.7-10.4 mg/dL Total Bilirubin 0.4 0.2-1.0 mg/dL Aspartate Amino Transferase (AST) 28 13-40 U/L Alanine Aminotransferase (ALT) 24 7-40 U/L Alkaline Phosphatase 190 H 46-116 U/L Total Protein 8.0 5.7-8.2 g/dL Albumin 4.8 3.2-4.8 g/dL Lipase 24 12-53 U/L Urine Color Light-yellow Yellow Urine Clarity Clear Clear Urine pH 6.5 5.0-9.0 Urine Specific [place] 1.048 H 1.001-1.035 Urine Protein 1+ H Negative Urine Ketones 2+ H Negative Urine Blood Negative Negative /uL Urine Nitrite Negative Negative Urine Bilirubin Negative Negative Urine Urobilinogen Normal Negative mg/dL Urine Leukocyte Esterase Negative Negative /uL Urine RBC 1 0 - 3 /hpf Urine Microscopic WBC < 1 0-3 /HPF Urine Squamous Epithelial Cells Few <5 /hpf Urine Bacteria None seen None Seen /hpf Urine Glucose 4+ H Normal mg/dL POC Glucose 347 H 70-106 mg/dl X-Ray, Labs, Meds, VS Comment Imaging: X-rays and CT scans were reviewed and interpreted by this provider, imaging shows no fractures and no pathological disease. Pending radiology review. Laboratory: Labs reviewed and interpreted by this provider. Patient was elevated blood glucose and ketones in the urine. Patient advised to started taking his insulin on a regular basis Patient has prior medical visits reviewed. Med reconciliation performed Vital signs reviewed Time of 1ST Reevaluation: 02:27 Reevaluation 1ST: Improved Patient Education/Counseling: Diagnosis, Treatment, Need For Follow Up (Follow up in the next 24 hours if symptoms worsen.) Family Education/Counseling: Diagnosis Departure 1 Departure Time of Disposition: 02:25 Impression: Primary Impression: Non-specific colitis Additional Impression: Gastritis Qualified Codes: K29.70 - Gastritis, unspecified, without bleeding Disposition: 01 HOME / SELF CARE / HOMELESS Condition: Fair e-Prescriptions Dicyclomine Hcl (Dicyclomine Hcl) 20 Mg Tab 1 TAB PO TID, #30 TAB 1 Refill Prov: FIDELINA HERRERA 11/12/24 Ondansetron Odt 4MG Tab (ZOFRAN PO) 4 Mg Tb 4 MG PO TID PRN, #20 TAB ODT TAB-DISSOLVE IN MOUTH, THEN SWALLOW Prov: FIDELINA HERRERA 11/12/24 Discharged With: Self Critical Care Note Critical Care Time?: No Stability Stability form required: No Heart Score Heart Score: Heart Score Response (Comments) Value History N/A 0 EKG N/A 0 Age N/A 0 Risk Factors N/A 0 Troponin N/A 0 Total 0 FIDELINA HERRERA Nov 12, 2024 02:27
[2024-11-12 03:15] VITALS: BP 156/96; TEMP 98.1
[2024-11-12 03:17] VITALS: PULSE 105; RESP 16; O2SAT 96
== END 2024-11-12 03:22 | disposition home or self-care (01) ==
LOC: ER 00:09
DX: K52.9 Noninfective gastroenteritis and colitis, unspecified (principal); E78.5 Hyperlipidemia, unspecified; I10 Essential (primary) hypertension; Z79.899 Other long term (current) drug therapy
CPT/HCPCS: 36415; 74176; 80053; 81001; 82962; 83690; 85025; 96372; 99285; J2270; Q0162